=== PATIENT | female | born 1950 | race Caucasian/White ===

== ENCOUNTER 2019-05-10 17:29 | Emergency (ER) | payer MEDICARE, BC ==
[2019-05-10 17:42] VITALS: BP 140/75
--- NOTE | 2019-05-10 18:22 | UC ---
Lower Extremity/Ankle HPI - HPI Summary HPI Summary: pain in back of left calf and knee---patient reports pain and swelling and cramping in her leg for a few days----today she thinks she may have injured her knee while opening her front door-(no fall or trauma) patient is a breast cancer survivor - History of Current Complaint Chief Complaint: UCLowerExtremity Stated Complaint: LEG INJURY Time Seen by Provider: 05/10/19 18:17 Hx Obtained From: Patient ?: No Onset/Duration: Sudden Onset, Lasting Hours Pain Intensity: 5 Pain Scale Used: 0-10 Numeric Aggravating Factor(s): Standing, Ambulation Alleviating Factor(s): Rest, Elevation Able to Bear Weight: Yes - with pain - Allergies/Home Medications Allergies/Adverse Reactions: Allergies Allergy/AdvReac Type Severity Reaction Status Date / Time cefuroxime [From Ceftin] Allergy GI Upset Verified 05/10/19 17:43 ciprofloxacin [From Cipro] Allergy Headache Verified 05/10/19 17:43 citalopram [From Celexa] Allergy Hives Verified 05/10/19 17:43 clindamycin Allergy GI Upset Verified 05/10/19 17:43 Sulfa (Sulfonamide Allergy Headache Verified 05/10/19 17:43 Antibiotics) PMH/Surg Hx/FS Hx/Imm Hx Endocrine History: Hypothyroidism Cardiovascular History: Hypertension Psychological History: Depression Cancer History: Breast Cancer - Surgical History Surgical History: Yes Surgery Procedure, Year, and Place: OVARIAN CYSTS REMOVED. ULNAR NERVE REPAIR LEFT ARM. ORAL DENTAL SURGERY. CYSTS REMOVED FROM HEAD. BILATERAL CATARACTS. FIBROIDS REMOVED - Family History Known Family History: Positive: None - Social History Occupation: Retired Lives: With Family Alcohol Use: Rare Substance Use Type: None Smoking Status (MU): Former Smoker Type: Cigarettes Amount Used/How Often: 1 pack per day Length of Time of Smoking/Using Tobacco: 47 years Have You Smoked in the Last Year: No When Did the Patient Quit Smoking/Using Tobacco: 10/06/2014 Review of Systems All Other Systems Reviewed And Are Negative: Yes Constitutional: Positive: Negative Skin: Positive: Negative Eyes: Positive: Negative ENT: Positive: Negative Respiratory: Positive: Negative Cardiovascular: Positive: Negative Gastrointestinal: Positive: Negative Genitourinary: Positive: Negative Motor: Positive: Negative Neurovascular: Positive: Negative Musculoskeletal: Positive: Myalgia - posterior knee/calf Neurological: Positive: Negative Psychological: Positive: Negative Is Patient Immunocompromised?: No Physical Exam Triage Information Reviewed: Yes Appearance: Well-Appearing, Well-Nourished, Pain Distress Vital Signs: Initial Vital Signs Temp 98.0 F 05/10/19 17:40 Pulse 92 05/10/19 17:40 Resp 12 05/10/19 17:40 BP 140/75 05/10/19 17:40 Pulse Ox 98 05/10/19 17:40 Vital Signs Reviewed: Yes Eye Exam: Normal Eyes: Positive: Conjunctiva Clear ENT Exam: Normal ENT: Positive: Normal ENT inspection, Hearing grossly normal. Negative: Trismus , Muffled voice, Hoarse voice Dental Exam: Normal Neck exam: Normal Neck: Positive: Supple, Nontender, No Lymphadenopathy Respiratory Exam: Normal Respiratory: Positive: Chest non-tender, No respiratory distress, No accessory muscle use Cardiovascular Exam: Normal Cardiovascular: Positive: RRR, Pulses Normal, Brisk Capillary Refill Musculoskeletal Exam: Other Musculoskeletal: Positive: Strength Intact, ROM Intact, Edema @ - posterior left knee Neurological Exam: Normal Neurological: Positive: Alert, Muscle Tone Normal Psychological Exam: Normal Skin Exam: Normal Diagnostics - Radiology No standard instances Radiology Interpretation Completed By: Radiologist - no evidence of DVT Lower Extremity Course/Dx - Course Course Of Treatment: lorne wrap ice, walker Tylenol, ibuprofen follow with pcp this week - Differential Dx/Diagnosis Provider Diagnosis: Left knee injury, Hypertension Discharge - Sign-Out/Discharge Documenting (check all that apply): Patient Departure All imaging exams completed and their final reports reviewed: No Studies - Discharge Plan Condition: Stable Disposition: HOME Patient Education Materials: Acetaminophen (By mouth), Ibuprofen (By mouth), Knee Pain (ED), R.I.C.E. Treatment (ED) Referrals: Marina Romero MD [Primary Care Provider] - 2 Days - Billing Disposition and Condition Condition: STABLE Disposition: Home
== END 2019-05-10 20:20 | disposition home or self-care (01) ==
LOC: UCEAST 17:29
DX: S89.92XA Unspecified injury of left lower leg, initial encounter (principal); X50.0XXA Overexertion from strenuous movement or load, initial encounter; Y92.019 Unspecified place in single-family (private) house as the place of occurrence of the external cause; I10 Essential (primary) hypertension; E03.9 Hypothyroidism, unspecified; F32.9 Major depressive disorder, single episode, unspecified; Z85.3 Personal history of malignant neoplasm of breast; Z88.2 Allergy status to sulfonamides; Z87.891 Personal history of nicotine dependence
CPT/HCPCS: 99213; G0463